=== PATIENT | male | born 1985 | race Caucasian/White ===

== ENCOUNTER → 2023-08-25 | Outpatient (CLI) | payer BC, SELFPAY ==
[2023-08-25 12:33] LABS: Anion Gap 7 (5-15); BUN 9 mg/dL (7-18); BUN/Creat Ratio 9.8 RATIO (10-20); Chloride 106 mmol/L (98-107); Cholesterol 191 mg/dL (200); Creatinine, Serum 0.92 mg/dL (0.70-1.30); EST Glomerular Filtration Rate 97 mL/min (>60); Est Glom Filt Rate - Afr Amer 117 mL/min (>60); Glucose 98 mg/dL (74-106); High Density Lipoprotein 53 mg/dL; Potassium 4.1 mmol/L (3.5-5.1); Sodium Level 139 mmol/L (136-145); Triglycerides 99 mg/dL; Very Low Density Lipoprotein 20 mg/dL (5-40)
== END | disposition home or self-care (01) ==
LOC: MFPLAB 10:57
PROVIDERS: PCP Family Medicine; Visit Provider Family Medicine
DX: Z00.00 Encounter for general adult medical examination without abnormal findings (principal)
CPT/HCPCS: 36415; 80048; 80061

== ENCOUNTER 2023-09-25 06:17 | Day surgery (SDC) | payer OTHER, SELFPAY ==
[2023-09-25] VITALS (8 sets, daily range): BP systolic 126–144; BP diastolic 75–95; PULSE 54–84; RESP 16; TEMP 36.1–36.7; O2SAT 91–99; BMI 31.4
--- NOTE | 2023-09-25 06:51 | HP.PCM_ITS ---
History and Physical Date of Admission: 09/25/23 Intake Vital Signs 09/13/2412:31 Weight: 237 lb BP 167/93 H Blood Pressure Location Rt brachial Position Sitting Respiration 17 Pulse 100 Pulse Source Monitor Pulse Oximetry (%) 97 Oxygen Delivery Method room air Intake Visit Reasons: Inguinal Hernia Chief Complaint: inguinal hernia Is patient in pain?: No Allergies cefaclor [From Ceclor] Allergy (Intermediate, Verified 09/14/23 13:32) Hives Medications ascorbate calcium (vitamin C) 500 mg tablet 500 mg PO DAILY 09/14/23 [History Confirmed 09/14/23] psyllium husk 0.4 gram capsule (Metamucil) 0.4 g PO DAILY 09/14/23 [History Confirmed 09/14/23] PFSH Surgical History (Updated 09/14/23 @ 13:30 by Nikky Reynoso) H/O left inguinal hernia repair Social History (Updated 09/14/23 @ 13:31 by Nikky Reynoso) Smoking Status: Never smoker alcohol intake: current alcohol intake frequency: holidays/special occasions only HPI HPI HPI: Patient is a 38-year-old male who with right inguinal hernia. He reports has been there for several years. He says especially when he coughs it is becoming worse. He has history of repair of the left inguinal hernia in the past. He denies any nausea or vomiting or fevers or chills. ROS General General: No weight change, appetite, fatigue, colon cancer, breast cancer or weakness HEENT HEENT: No difficulty swallowing, eye injury, eye surgery, swollen glands or hoarseness Endo Endocrine: No thyroid disease, diabetes mellitus, thyroid cancer, Hair loss, heat intolerance or cold intolerance Skin Skin: No rash or changing moles Musc Musculoskeletal: No back problems, arthritis, rheumatoid arthritis, gout or joint pain Cardio Cardiovascular: No murmur, pacemaker, heart disease, atrial fibrillation, high blood pressure, heart attack, heart stent, palpitations, shortness of breat with exertion or chest pain Psych Psychiatric: No depression, anxiety or hearing voices Resp Respiratory: No shortness of breath, No sleep apnea, Yes cough, No COPD, No asthma, No emphysema and No wheezing Gastro Gastrointestinal: No abdominal pain, No nausea or vomiting, No diarrhea, No constipation, No blood in stool, No acid reflux, No hemorrhoids, No ulcers, No gallbladder problem and No black,tarry stools Marcelo Hematologic: No blood thinners, No blood disorders, No bleeding, No anemia and No blood clots Neuro Neurologic: No system reviewed and no additional complaints, except as documented, No as per HPI, No abnormal gait, No abnormal hearing, No abnormal movements, No abnormal speech, No behavioral changes, No burning sensations, No confusion, No convulsions, No disequilibrium, No dizziness, No localized weakness, No frequent falls, No headache(s), No lack of coordination, No loss of vision, No memory loss, Yes numbness, No other visual disturbances, No radicular pain, No restless legs, No sensory deficit, No syncope, Yes tingling, No tremor(s), No weakness and No other Exam Const General: cooperative Orientation: alert and oriented x3 HENMT Head: normal to inspection Neck Neck: normal visual inspection and full ROM Chest Chest palpation & inspection: normal inspection of the chest Resp Effort & Inspection: normal respiratory effort Auscultation: clear to auscultation bilaterally Cardio Rate: regular rate Rhythm: regular rhythm GI Inspection: non-distended Palpation: soft, hernia indirect inguinal on the right and nontender Skin General: no rashes or lesions noted Neuro General: patient alert and patient oriented x3 Extrem General: full ROM Psych Appearance: grossly normal Mental Status: mental status grossly normal Assessment and Plan Assessment and Plan (1) Inguinal hernia: Status: Acute Qualifiers: Obstruction and gangrene presence: without obstruction or gangrene Laterality: unilateral Recurrence: not specified as recurrent Qualified Code(s): K40.90 - Unilateral inguinal hernia, without obstruction or gangrene, not specified as recurrent Plan: The patient has a reducible right inguinal hernia. He would like it repaired. He does have a history of repair on the left. I discussed robotic assisted laparoscopic right inguinal hernia repair with mesh. I discussed the procedure as well as the risks including but not limited to bleeding, infection, injury other organs such as the bowel or bladder or blood supply to the testicle. Patient understands all the risks and is willing to proceed. He was interested in his vasectomy as well but I would rather perform that as an outpatient at a later date to prevent any risk of mesh infection. Patient is agreeable. Burton Kelley MD Pager: [facility] [address] [place] [address], [address] [place] [address] Office: I have examined the patient and the H&P has been reviewed. There are no clinical changes since date of exam.
[2023-09-25] MEDS: Lactated Ringers 1,000 ML 15 ML IV (06:58)
[2023-09-25] MEDS: Clindamycin 900 MG/50 ML BAG 75 MG IV (07:36)
[2023-09-25] MEDS: Bupivacaine Mpf 0.5% 30 ML VIAL (08:30)
--- NOTE | 2023-09-25 08:39 | OP.PCM_ITS ---
Report of Operation Date of Procedure: 09/25/23 Pre-Operative Diagnosis: Right inguinal hernia Post-Operative Diagnosis: Same Surgery/Procedure Performed:: Robotic assisted laparoscopic right inguinal hernia repair with mesh Type of Anesthesia: General/Regional Specimen's removed: None Estimated Blood Loss (mL): 5 Description of Procedure: Patient was brought back to the operating room and general anesthesia was induced. The abdomen was prepped and draped in usual sterile fashion. A midline incision was made superior to the umbilicus and the fascia was grasped a nd elevated and a Veress needle was placed into the abdomen and a drop test was performed. Abdomen was then insufflated to 15 mmHg and the Veress needle was removed. A camera port was placed into the abdomen. Camera was placed into the abdomen and it was inspected and there were no injuries from entry. Patient was placed in Trendelenburg position. Under direct visualization a right lateral and left lateral 8 mm port were inserted. The robot was then docked. Electrocautery scissors were used to make an incision in the peritoneum in the right lower quadrant. The peritoneum was then dissected inferiorly until the hernia sac was encountered. It was reduced and divided from its contents. Dissection was carried posteriorly. Next a piece of ProGrip mesh was placed into the right lower quadrant and unfolded over the hernia defect. There was good coverage. Next the peritoneum was reapproximated using a running 3 OV lock suture. The mesh was completely covered by peritoneum at the end of the case. Next the robot was undocked and the ports were removed and the abdomen was allowed to desufflate. The incisions were injected with local anesthetic and closed with interrupted 4-0 Monocryl sutures. Steri-Strips and bandages were applied. Scrotum was checked at the end of the case and contain both testicles. Patient was awoken and taken to PACU in stable condition and tolerated the procedure well. Grafts/Implants Used: ProGrip mesh in the right groin Admit VTE Documentation VTE Mechan Device Prophylaxis: SCD's
--- NOTE | 2023-09-25 08:42 | DCINST_ITS ---
Discharge Instructions Procedure Hernia Diet Discharge Diet: Light diet - advance as tolerated Activity Discharge Activity: May Not Drive (for 2-3 days or while taking narcotic pain meds.) and May Shower (with the bandage in place 1-2 days after surgery.) Lifting Restrictions: 20 pounds for 4 weeks. Additional Activity Instructions:: Climbing stairs is fine, walking is encouraged. Sitting in bed may be uncomfortable. Sitting up using your lateral muscles (sitting up sideways) is usually more comfortable. Do not drive, work heavy equipment of sign legal documents for 24 hours. If your hernia repair was an inguinal repair, you may have scrotal swelling, an ice pack and/or athletic support can provide more comfort. Pain medications may cause nausea, you should typically eat light foods as you take your pain medications. Pain medications may also cause constipation. If you have difficulty with this, discuss with your doctor. Alternate ibuprofen and Tylenol for pain, oxycodone for breakthrough pain Dressing / Incision Call your doctor if your incision/area has: Continuous Slow Oozing, Sudden Increased Bleeding, Increased Pain/ Swelling, Increased Redness and Foul Smelling Discharge Call your doctor if you observe: Fever of 101 or Higher Suture Line Care: Avoid Pulling/Pushing and Avoid Pinching/Bending Remove Dressing in: 2 days (Remove clear bandages in 2 days, remove Steri-Strips in 7 to 10 days.) Follow Up Care Please Follow Up With: Burton Kelley MD When: Please call to schedule 2 week follow up appointment. [phone] Test Results: Test results from this visit will be discussed in further detail at your follow- up appointment, if applicable. Discharge Plan Admission Attending Provider: Burton Kelley Primary Care Provider: Jeevan Godfrey Instructions Print Language: Citizen Of [place] Discharge Orders/Prescriptions Prescriptions: New oxycodone 5 mg Tablet 5 - 10 mg PO Q4H PRN PRN (Reason: Pain Score 4-10) 5 Days Qty: 10 0RF No Action ascorbate calcium (vitamin C) 500 mg tablet 500 mg PO DAILY Referrals / Follow Up: Jeevan Godfrey MD [Primary Care Provider] - Disposition Disposition (needs filled in before D/C Order can be placed): Home, Self Care
[2023-09-25] MEDS: oxyCODONE 5 MG Tablet PO (09:53)
[2023-09-25] MEDS: Acetaminophen 325 MG Tablet 650 MG PO (09:53)
== END 2023-09-25 12:18 | disposition home or self-care (01) ==
LOC: SDC 06:21 → AC 06:22
PROVIDERS: PCP Family Medicine; Referring Provider Surgery; Visit Provider Surgery
PROC: (CPT 49650; principal; 2023-09-25 07:10)
DX: K40.90 Unilateral inguinal hernia, without obstruction or gangrene, not specified as recurrent (principal); Z87.891 Personal history of nicotine dependence
CPT/HCPCS: 49650; S2900; 00840; J7120; J2405

== ENCOUNTER → 2024-08-01 | Outpatient (CLI) | payer OTHER, SELFPAY ==
--- NOTE | 2024-08-01 13:00 | VAS_PTH ---
PATIENT: SUDHEER POZO LOC: [facility] U#:[id number] AGE/SX: 39/M ROOM: RE08/01/[address]: Dr. Burton Kelley MD : 1985 BED: DIS: 08/01/2024 SPEC #: [id number] RECD: 08/01/24 13:54 STATUS: RAYMON REJessica #: [id number] SHYANNE: 08/01/24 13:[address]: Burton Kelley DEPT: SURGICAL PATHOLOGY RECD BY: Abdoulaye Cruz ENTERED: 08/01/24 13:56 SP TYPE: VAS OTHR DR: Dr. Jeevan Godfrey MD Tissues: A - Vas deferens, NOS Procedures: Surgery Specimen Level II HEADER OPERATION: Bilateral partial vasectomy PRE-OP DIAGNOSIS: Sterilization TISSUE SUBMITTED: A- Right vas deferens, B- Left vas deferens MICROSCOPIC DIAGNOSIS A, RIGHT VAS DEFERENS, SEGMENTAL RESECTION: -COMPLETE LUMINAL CROSS-SECTION CONFIRMED. B, LEFT VAS DEFERENS, SEGMENTAL RESECTION: - COMPLETE LUMINAL CROSS-SECTION CONFIRMED. MICROSCOPIC DESCRIPTION Slides are reviewed. GROSS DESCRIPTION Specimen A-received in formalin labeled, Sudheer Pozo, and designated right vas deferens, is a borja, smooth, segment of vas deferens measuring 0.8 cm long by 0.3 cm in diameter. Sectioning shows an unremarkable lumen. The specimen is bisected and totally submitted in one cassette. Specimen B-received in formalin labeled, Sudheer Pozo, and designated left vas deferens, is a borja, smooth, segment of vas deferens that measures 1.1 cm long by 0.3 cm in diameter. Sectioning shows an unremarkable lumen. Two client representative sections are submitted in one cassette.KESHA 08/01/2024 CPT:78223j0
== END | disposition home or self-care (01) ==
LOC: LABSPEC 13:44
PROVIDERS: PCP Family Medicine; Referring Provider Surgery; Visit Provider Surgery
DX: Z30.2 Encounter for sterilization (principal)
CPT/HCPCS: 88302

== ENCOUNTER → 2024-08-23 | Outpatient (CLI) | payer OTHER, SELFPAY ==
[2024-08-23 13:25] LABS: Anion Gap 11 (5-15); BUN 13 mg/dL (4-19); BUN/Creat Ratio 13.4 RATIO (10-20); Calcium,Total 9.6 mg/dL (7.6-11.0); Carbon Dioxide 23.9 mmol/L (21.0-32.0); Chloride 104 mmol/L (98-108); Cholesterol 188 mg/dL (<=200); Creatinine, Serum 0.96 mg/dL (0.70-1.20); EST Glomerular Filtration Rate 102 (>60); Glucose 98 mg/dL (70-99); High Density Lipoprotein 55 mg/dL; Low Density Lipoprotein Calc. 119 mg/dL; Potassium 4.2 mmol/L (3.3-5.1); Sodium Level 139 mmol/L (133-145); Triglycerides 72 mg/dL; Very Low Density Lipoprotein 14 mg/dL (5-40); cholesterol:hdl ratio screen 3.43
== END | disposition home or self-care (01) ==
LOC: MTLAB 10:49
PROVIDERS: PCP Family Medicine; Referring Provider Family Medicine; Visit Provider Family Medicine
DX: Z00.00 Encounter for general adult medical examination without abnormal findings (principal)
CPT/HCPCS: 36415; 80048; 80061